=== PATIENT | female | born 1985 | race Caucasian/White ===

== ENCOUNTER 2016-08-04 10:41 | Inpatient (IN) | payer OTHER ==
[2016-08-04] VITALS (40 sets, daily range): BP systolic 110–164; BP diastolic 70–115; PULSE 68–125; RESP 18–20; TEMP 97.6–98.5
[~2016-08-04 10:41] MED LIST: ENDO100S PV; PREN0.01 PO; TOBRA.3%O EACH EYE
--- NOTE | 2016-08-04 12:31 | PD.LABORPN ---
Subjective Subjective Pt anxious due to difficulty starting IV Objective Objective Pelvic Exam: Cervix: [- Dilatation: 4 Effacement: 70 Station: -2 Presentation: vtx Membranes: AROM clear fluid Uterine Contractions:occ FHT's: Category: 1 Baseline: 140 Reactive: reactive Variability: [-] Decels: [-] Assessment/Plan Assessment and Plan 30 yo WF at 39 wks 6 dys with PIH with elevated pressures today with a headache 1. induce 2. check preeclampsia labs 3. medicate BP prn , possible need for mag Rosanne Pichardo MD Aug 04, 2016 12:31
[2016-08-04] MEDS ORDERED: OXYTOCIN 30 UNITS-500ML PREMIX 500 ML ONE (12:36)
[2016-08-04] MEDS ORDERED: LIDOCAINE HCL 1% 50 ML VIAL INFIL PRN (13:00)
[2016-08-04] MEDS ORDERED: MINERAL OIL 10 ML VIAL TOP PRN (13:00)
[2016-08-04] MEDS ORDERED: LIDOCAINE HCL 1% 50 ML VIAL I-DERMAL PRN (13:00)
[2016-08-04] MEDS ORDERED: PENICILLIN G POT 5,000,000 UNITS/NS 100 ML (Mini-Bag Plus) IV ONE ×2 (13:00)
[2016-08-04] MEDS ORDERED: NS 1000 ML IV PRN (13:00)
[2016-08-04] MEDS ORDERED: CITRIC ACID-SODIUM CITRATE LIQ 30 ML UDC PO SCH (13:00)
[2016-08-04] MEDS ORDERED: NS 500 ML BOLUS IV PRN (13:00)
[2016-08-04] MEDS ORDERED: LACTATED RINGER'S 1000 ML BOLUS IV PRN (13:00)
[2016-08-04] MEDS ORDERED: OXYTOCIN 30 UNITS 500ML PREMIX IV ONE (13:00)
[2016-08-04] MEDS: LACTATED RINGER'S 1000 ML IV SCH (13:04)
[2016-08-04 13:05] LABS: AUTOMATED NEUTROPHIL # 5.7 TH/MM3 (1.8-7.7); BASOPHIL % 0.4 % (0.0-2.0); EOSINOPHIL # 0.1 TH/MM3 (0-0.4); EOSINOPHIL % 0.9 % (0.0-4.0); HEMATOCRIT 34.3 % (35.0-46.0); HEMO FLAGS DIFF FINAL; LYMPH % 17.1 % (9.0-44.0); LYMPHOCYTE # 1.3 TH/MM3 (1.0-4.8); MEAN CELL VOLUME 87.8 FL (80.0-100.0); MEAN CORPUSCULAR HEMOGLOBIN 29.7 PG (27.0-34.0); MEAN CORPUSCULAR HGB CONC 33.8 % (32.0-36.0); MONO % 5.9 % (0.0-8.0); NEUT % 75.7 % (16.0-70.0); PLATELET COUNT 159 TH/MM3 (150-450); RED CELL DISTRIBUTION WIDTH 14.2 % (11.6-17.2); WHITE BLOOD COUNT 7.5 TH/MM3 (4.0-11.0)
[2016-08-04 13:13] LABS: BLOOD, URINE TRACE (NEG); COMMENT (UR) CULT NOT INDICATED; CULTURE IF INDICATED CULT NOT INDICATED; GLUCOSE,URINE NEG (NEG); KETONE, URINE NEG (NEG); MUCUS URINE FEW /lpf (OCC); NITRITE,URINE NEG (NEG); PH, URINE 6.5 (5.0-8.5); SQUAMOUS EPITHELIAL CELL URINE 15 /hpf (0-5); URINE COLOR YELLOW (YELLW/STRAW)
[2016-08-04] MEDS ORDERED: OXYTOCIN 30 UNITS/NS 500ML PREMIX IV SCH (13:15)
[2016-08-04] MEDS ORDERED: DIPHTH/TETANUS/ACEL PERTUSSIS (BOOSTER) 0.5 ML VIAL/PFS IM ONE ×2 (16:00)
[2016-08-04] MEDS ORDERED: MEASLES, MUMPS, RUBELLA VACCINE 0.5 ML VIAL SQ ONE ×2 (16:00)
[2016-08-04] MEDS ORDERED: fentaNYL 2MCG-BUPIV 0.125% INJ 100 ML ONE (16:10)
[2016-08-04] MEDS ORDERED: NO SYSTEM NARCOTICS XX PRN (17:30)
[2016-08-04] MEDS ORDERED: DO NOT ADMINISTER ANTICOAGULANTS XX PRN (17:30)
[2016-08-04] MEDS ORDERED: ePHEDrine/NS 25 MG/5 ML SYR IV PRN (17:30)
[2016-08-04] MEDS ORDERED: fentaNYL 2MCG-BUPIV 0.125% 100 ML EPIDURAL SCH (17:30)
[2016-08-04] MEDS: PENICILLIN G POT 2,500,000 UNITS/NS 100 ML IV SCH ×2 (17:32)
--- NOTE | 2016-08-04 19:29 | PD.OB.DELI ---
Delivery Date: Aug 04, 2016 Anesthesia: Epidural Episiotomy: None Vaginal Delivery: Normal Presentation: Compound Nuchal Cord: x2 Delayed cord clamping (45 sec): No Infant: Male, Single One Minute : 8 Five Minute : 9 Weight: 8-14 Placenta: Spontaneous delivery, Intact, 3 vessel cord Laceration: Vaginal laceration, 1 deg Repair: Chromic interrupted, Chromic running Rosanne Pichardo MD Aug 04, 2016 19:29
[2016-08-04] MEDS ORDERED: ZOLPIDEM TARTRATE 5 MG TAB PO PRN ×2 (19:30)
[2016-08-04] MEDS ORDERED: DOCUSATE SODIUM 50 MG/SENNA 8.6 MG TAB PO PRN (19:30)
[2016-08-04] MEDS ORDERED: SODIUM CHLORIDE 0.9% FLUSH 5 ML FLUSH IV PRN ×2 (19:30)
[2016-08-04] MEDS ORDERED: ACETAMINOPHEN 325 MG TAB PO PRN ×2 (19:30)
[2016-08-04] MEDS ORDERED: ONDANSETRON ODT 4 MG TAB PO PRN ×2 (19:30)
[2016-08-04] MEDS ORDERED: WITCH HAZEL 50%/GLYCERIN 12.5% 40 PAD JAR TOPICAL PRN (19:30)
[2016-08-04] MEDS ORDERED: BENZOCAINE 20% TOPICAL SPRAY 60 ML CAN TOPICAL PRN (19:30)
[2016-08-04] MEDS ORDERED: IBUPROFEN 600 MG TAB PO PRN (19:30)
[2016-08-04] MEDS ORDERED: oxyCODONE/ACETAMINOPHEN 5 MG/325 MG TAB PO PRN ×3 (19:30)
[2016-08-04] MEDS ORDERED: ALUMINUM/MAGNESIUM/SIMETH 30 ML CUP PO PRN ×2 (19:30)
[2016-08-04] MEDS ORDERED: SODIUM CHLORIDE 0.9% FLUSH 5 ML FLUSH IV SCH ×2 (21:00)
[2016-08-04] MEDS: BENZOCAINE 20% TOPICAL SPRAY 60 ML CAN TOPICAL PRN (22:15)
[2016-08-04] MEDS: WITCH HAZEL 50%/GLYCERIN 12.5% 40 PAD JAR TOPICAL PRN (22:15)
[2016-08-04] MEDS: DOCUSATE SODIUM 50 MG/SENNA 8.6 MG TAB PO PRN (22:16)
[2016-08-05] MEDS: IBUPROFEN 600 MG TAB PO PRN ×3 (01:15→16:12)
[2016-08-05] MEDS: oxyCODONE/ACETAMINOPHEN 5 MG/325 MG TAB PO PRN ×4 (01:16→16:13)
[2016-08-05 07:35] VITALS: TEMP 98.4
--- NOTE | 2016-08-05 08:27 | HHI.OB ---
Subjective Post Day: 1 Remarks Pt doing well, no co Objective Vitals/I&O Vital Signs Date Time Temp Pulse Resp B/P Pulse Ox O2 Delivery O2 Flow Rate FiO2 08/05/16 07:35 98.4 08/04/16 21:30 97.6 08/04/16 21:30 68 18 110/76 08/04/16 20:30 18 08/04/16 20:17 103 135/89 08/04/16 20:15 18 08/04/16 20:02 108 123/73 08/04/16 20:00 18 08/04/16 19:47 98 133/79 08/04/16 19:45 98.5 08/04/16 19:41 18 08/04/16 19:35 108 128/91 08/04/16 18:46 102 144/87 08/04/16 18:31 106 151/90 08/04/16 18:17 101 154/78 08/04/16 18:01 101 151/103 08/04/16 17:47 93 157/84 08/04/16 17:45 98.2 18 08/04/16 17:35 125 156/96 08/04/16 17:17 96 147/95 08/04/16 16:41 107 141/92 08/04/16 16:40 108 08/04/16 16:38 104 138/70 08/04/16 16:35 105 08/04/16 16:31 109 154/95 08/04/16 16:30 104 08/04/16 16:25 110 08/04/16 16:25 106 141/104 08/04/16 16:16 96 164/95 08/04/16 16:01 95 153/97 08/04/16 16:00 98.0 18 08/04/16 15:46 94 136/81 08/04/16 15:31 100 142/92 08/04/16 15:16 94 141/89 08/04/16 15:04 94 138/115 08/04/16 14:31 91 144/89 08/04/16 14:16 93 135/76 08/04/16 14:01 90 123/77 08/04/16 13:46 89 133/87 08/04/16 13:34 98.0 20 08/04/16 13:16 98 127/79 08/04/16 13:01 100 143/93 08/04/16 12:52 105 135/90 Objective Remarks GENERAL: Well-nourished, well-developed patient. CARDIOVASCULAR: Regular rate and rhythm without murmurs, gallops, or rubs. RESPIRATORY: Breath sounds equal bilaterally. No accessory muscle use. ABDOMEN/GI: Abdomen soft, non-tender. Fundus: Firm, non-tender at umbilicus. GENITOURINARY: Light to moderate bleeding. EXTREMITIES: No cyanosis or edema, non-tender, without signs of DVT. Medications and IVs Current Medications Medications (Trade) Dose Ordered Sig/Zuly Route Start Time Stop Time Status Last Admin Lactated Ringer's 1,000 ml @ 125 mls/hr Q8H IV 08/04/16 13:00 08/04/16 13:04 Lactated Ringer's 1,000 ml @ 3,000 mls/hr BOLUS PRN IV 08/04/16 13:00 Sodium Chloride 500 ml @ 1,000 mls/hr BOLUS PRN IV 08/04/16 13:00 (NS 1000 ml Inj) 1,000 ml @ 100 mls/hr Q10H PRN IV 08/04/16 13:00 (fentaNYL INJ) 50 mcg Q1H PRN IV PUSH 08/04/16 13:00 08/04/16 15:14 Fentanyl Citrate 100 mcg 100 mcg Q1H PRN IV PUSH 08/04/16 13:00 (Pfizerpen-G Inj/ NS Inj) 100 ml @ 200 mls/hr Q4H IV 08/04/16 17:00 08/04/16 17:32 Mineral Oil 10 ml 10 ml UNSCH PRN TOP 08/04/16 13:00 (Pitocin 30 Units-NS 500 ml Premix) 500 ml @ 0 mls/hr TITRATE IV 08/04/16 13:15 Miscellaneous Information No systemic narcotics to be given except... UNSCH PRN XX 08/04/16 17:30 08/05/16 17:29 Miscellaneous Information DO NOT ADMINISTER ANY ANTICOAGUL... UNSCH PRN XX 08/04/16 17:30 08/05/16 17:29 (fentaNYL 2MCG-BUPIV 0.125% INJ) 100 ml @ 0 mls/hr TITRATE EPIDURAL 08/04/16 17:30 (ePHEDrine/NS 25 MG/5 ML SYR) 10 mg UNSCH PRN IV 08/04/16 17:30 08/05/16 17:29 (NS Flush) 2 ml BID IV 08/04/16 21:00 (NS Flush) 2 ml UNSCH PRN IV 08/04/16 19:30 (Tylenol) 650 mg Q4H PRN PO 08/04/16 19:30 (Motrin) 600 mg Q6H PRN PO 08/04/16 19:30 08/05/16 06:52 (Percocet 5-325 Mg) 2 tab Q4H PRN PO 08/04/16 19:30 (Americaine 20% Top Spr) 1 spray Q4H PRN TOPICAL 08/04/16 19:30 08/04/16 22:15 (Tucks Pads) 1 applic QID PRN TOPICAL 08/04/16 19:30 08/04/16 22:15 (Sobia-Colace) 2 tab Q12H PRN PO 08/04/16 19:30 08/04/16 22:16 (Ambien) 5 mg HS PRN PO 08/04/16 19:30 (Mag-Al Plus Susp Liq) 15 ml Q8H PRN PO 08/04/16 19:30 (Zofran Odt) 4 mg Q6H PRN PO 08/04/16 19:30 (Percocet 5-325 Mg) 1 tab Q4H PRN PO 08/04/16 19:30 08/05/16 06:52 Assessment/Plan Assessment and Plan PPD # 1 s/p doing well, BP much improved Discharge Planning plan for discharge tomorrow Rosanne Pichardo MD Aug 05, 2016 08:26
--- NOTE | 2016-08-05 08:28 | PD.CIRC ---
Circumcision Procedure Note Procedure Date: Aug 05, 2016 Procedure Time: 08:00 Procedure: Circumcision done with mogan without complication Pre-procedure diagnosis: circumcision Post-procedure diagnosis: circumcision Informed Consent: The risks, benefits, indications, potential complications, and alternatives were explained to the patient/family and informed consent obtained. The baby was brought to the procedure room where a time-out was done to ID the patient and the procedure. Performing Physician: Rosanne Tena Anesthesia used: Emla cream Device used: Mogen Description: The baby was prepped and draped in a sterile fashion. The procedure followed standard technique. The baby tolerated the procedure well without complication. Specimen: Rosanne Howe MD Aug 05, 2016 08:28
[2016-08-05] MEDS: DOCUSATE SODIUM 50 MG/SENNA 8.6 MG TAB PO PRN (09:19)
[2016-08-05 11:43] VITALS: BP 132/69; PULSE 97; RESP 18
[2016-08-05] MEDS: LACTATED RINGER'S 1000 ML IV SCH (21:00)
[2016-08-05] MEDS: PENICILLIN G POT 2,500,000 UNITS/NS 100 ML IV SCH ×2 (21:00)
[2016-08-06] MEDS: PENICILLIN G POT 2,500,000 UNITS/NS 100 ML IV SCH ×4 (01:00→05:00)
[2016-08-06] MEDS: WITCH HAZEL 50%/GLYCERIN 12.5% 40 PAD JAR TOPICAL PRN (03:16)
[2016-08-06] MEDS: IBUPROFEN 600 MG TAB PO PRN (03:29)
[2016-08-06] MEDS: oxyCODONE/ACETAMINOPHEN 5 MG/325 MG TAB PO PRN ×2 (03:30→12:13)
[2016-08-06] MEDS: LACTATED RINGER'S 1000 ML IV SCH (05:00)
[2016-08-06 08:00] VITALS: BP 120/90; PULSE 90; RESP 20; TEMP 98
[2016-08-06] MEDS: DOCUSATE SODIUM 50 MG/SENNA 8.6 MG TAB PO PRN (12:12)
[2016-08-06] MEDS: BENZOCAINE 20% TOPICAL SPRAY 60 ML CAN TOPICAL PRN (12:14)
--- NOTE | 2016-08-06 12:37 | HHI.OB ---
Subjective Post Day: 2 Remarks doing well Objective Vitals/I&O Vital Signs Date Time Temp Pulse Resp B/P Pulse Ox O2 Delivery O2 Flow Rate FiO2 08/06/16 08:00 98.0 90 20 08/06/16 08:00 120/90 Objective Remarks GENERAL: Well-nourished, well-developed patient. ABDOMEN/GI: Abdomen soft, non-tender. Fundus: Firm, non-tender at umbilicus. GENITOURINARY: Light to moderate bleeding. EXTREMITIES: No cyanosis or edema, non-tender, without signs of DVT. Medications and IVs Current Medications Medications (Trade) Dose Ordered Sig/Zuly Route Start Time Stop Time Status Last Admin Lactated Ringer's 1,000 ml @ 125 mls/hr Q8H IV 08/04/16 13:00 08/04/16 13:04 Lactated Ringer's 1,000 ml @ 3,000 mls/hr BOLUS PRN IV 08/04/16 13:00 Sodium Chloride 500 ml @ 1,000 mls/hr BOLUS PRN IV 08/04/16 13:00 (NS 1000 ml Inj) 1,000 ml @ 100 mls/hr Q10H PRN IV 08/04/16 13:00 (fentaNYL INJ) 50 mcg Q1H PRN IV PUSH 08/04/16 13:00 08/04/16 15:14 Fentanyl Citrate 100 mcg 100 mcg Q1H PRN IV PUSH 08/04/16 13:00 (Pfizerpen-G Inj/ NS Inj) 100 ml @ 200 mls/hr Q4H IV 08/04/16 17:00 08/04/16 17:32 Mineral Oil 10 ml 10 ml UNSCH PRN TOP 08/04/16 13:00 Oxytocin 500 ml @ 0 mls/hr TITRATE IV 08/04/16 13:15 (fentaNYL 2MCG-BUPIV 0.125% INJ) 100 ml @ 0 mls/hr TITRATE EPIDURAL 08/04/16 17:30 (NS Flush) 2 ml BID IV 08/04/16 21:00 (NS Flush) 2 ml UNSCH PRN IV 08/04/16 19:30 (Tylenol) 650 mg Q4H PRN PO 08/04/16 19:30 (Motrin) 600 mg Q6H PRN PO 08/04/16 19:30 08/06/16 03:29 (Percocet 5-325 Mg) 2 tab Q4H PRN PO 08/04/16 19:30 (Americaine 20% Top Spr) 1 spray Q4H PRN TOPICAL 08/04/16 19:30 08/06/16 12:14 (Tucks Pads) 1 applic QID PRN TOPICAL 08/04/16 19:30 08/06/16 03:16 (Sobia-Colace) 2 tab Q12H PRN PO 08/04/16 19:30 08/06/16 12:12 (Ambien) 5 mg HS PRN PO 08/04/16 19:30 (Mag-Al Plus Susp Liq) 15 ml Q8H PRN PO 08/04/16 19:30 (Zofran Odt) 4 mg Q6H PRN PO 08/04/16 19:30 (Percocet 5-325 Mg) 1 tab Q4H PRN PO 08/04/16 19:30 08/06/16 12:13 Assessment/Plan Assessment and Plan PPD # 1 s/p doing well, BP much improved Discharge Planning plan for discharge now Lito Cox MD Aug 06, 2016 12:37
[2016-08-06] MEDS ORDERED: OXYC1TAB63 PO (12:38)
--- NOTE | 2016-08-06 12:39 | HHI.DCPOC ---
Discharge Care Plan Diagnosis: (1) Vaginal delivery Report Symptoms to Your Doctor -Temperate above 100.5 degrees -Redness, of incision or excessive or foul smelling drainage -Unusual pain or calf pain -Increased vaginal bleeding -Painful or difficulty urinating -Feelings of extreme sadness or anxiety after 2 weeks Goals to Promote Your Health * To prevent worsening of your condition and complications * To maintain your health at the optimal level Directions to Meet Your Goals Take your medications as prescribed Follow your dietary instruction Follow activity as directed Ensure plenty of rest for recovery Drink fluids for hydration Keep your appointments as scheduled Take your immunizations and boosters as scheduled If your symptoms worsen call your PCP, if no PCP go to Urgent Care Center or Emergency Room Smoking is Dangerous to Your Health. Avoid second hand smoke Call the 24-hour crisis hotline for domestic abuse at Lito Cox MD Aug 06, 2016 12:39
--- NOTE | 2016-08-06 12:42 | HHI.DS ---
Admission Date Aug 04, 2016 at 10:41 Discharge Date: Aug 06, 2016 Admitting Diagnosis Diagnosis: (1) Vaginal delivery Delivery Date: Aug 04, 2016 Vaginal Delivery: Normal, Spontaneous : Male, Single Brief History came in with hypertension Hospital Course with out difficulty Pt Condition on Discharge: Good Discharge Disposition: Discharge Home Discharge Instructions Diet Instructions: As Tolerated, No Restrictions Activities You Can Perform: Pelvic Rest Activities to Avoid: Driving for 24 hrs Follow up Referrals: [facility] - 2 Weeks @ [facility] with Lito Cox MD New Medications: Oxycodone-Acetaminophen (Oxycodone-Acetaminophen) 5-325 mg Tab 1 TAB PO Q4H PRN PAIN SCALE 3 TO 5 #20 TAB Continued Medications: Multivit/Min/Fol Ac/Iron/Pren ( Vit ( Plus)) Tab 1 TAB PO DAILY TAB Discontinued Medications: Progesterone (Vaginal) (Endometrin) 100 Mg Sup 200 MG PV HS SUP Tobramycin Sulf (Tobrex Opth Soln) 0.3 % Soln 1 DROP EACH EYE Q4 Days 7 ML Lito Cox MD Aug 06, 2016 12:42
== END 2016-08-06 14:56 | disposition home or self-care (01) | DRG 775 ==
LOC: H2EA 10:41 → H1EA 21:31
PROVIDERS: ADMIT Obstetrics & Gynecology; ATTEND Obstetrics & Gynecology
PROC: 10E0XZZ Delivery of Products of Conception, External Approach (ICD-10-PCS; principal; 2016-08-04)
PROC: 10907ZC Drainage of Amniotic Fluid, Therapeutic from Products of Conception, Via Natural or Artificial Opening (ICD-10-PCS; 2016-08-04)
PROC: 0UQGXZZ Repair Vagina, External Approach (ICD-10-PCS; 2016-08-04)
PROC: 00HU33Z Insertion of Infusion Device into Spinal Canal, Percutaneous Approach (ICD-10-PCS; 2016-08-04)
PROC: 3E0R3CZ (ICD-10-PCS; 2016-08-04)
DX: O13.4 Gestational [pregnancy-induced] hypertension without significant proteinuria, complicating childbirth (principal); O71.4 Obstetric high vaginal laceration alone; O99.824 Streptococcus B carrier state complicating childbirth; O32.6XX0 Maternal care for compound presentation, not applicable or unspecified; O69.81X0 Labor and delivery complicated by cord around neck, without compression, not applicable or unspecified; Z3A.39 39 weeks gestation of pregnancy; Z37.0 Single live birth
CPT/HCPCS: 76937; 81001; 84550; 85025; 86900; 86901; J2540; J2590; J3010; J7120